=== PATIENT | female | born 1985 | race African-American/Black ===

== ENCOUNTER 2019-08-26 18:13 | Emergency (ER) | payer OTHER ==
[~2019-08-26] VITALS: Ht 165.1 cm; Wt 81.2 kg
[2019-08-26 20:10] LABS: PLATELET COUNT 191 K/uL (152-353)
[2019-08-26 20:20] LABS: POTASSIUM 4.4 mmol/L (3.6-5.2)
[2019-08-26 21:07] VITALS: BP 139/86; TEMP 97.7
== END 2019-08-26 21:15 | disposition home or self-care (01) ==
LOC: ED 18:13
PROVIDERS: Emergency Medicine
DX: J06.9 Acute upper respiratory infection, unspecified (principal)
CPT/HCPCS: 36415; 80053; 85027; 87502; 87651; 99283